=== PATIENT | female | born 1990 | race Two or more races ===

== ENCOUNTER 2017-12-02 07:42 | Emergency (ER) | payer BC, MEDICAID ==
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
[2017-12-02 10:13] VITALS: BP 120/72
== END 2017-12-02 10:05 | disposition home or self-care (01) ==
LOC: ER 07:42
DX: O9A.219 Injury, poisoning and certain other consequences of external causes complicating pregnancy, unspecified trimester (principal); S60.211A Contusion of right wrist, initial encounter; S60.222A Contusion of left hand, initial encounter; S50.12XA Contusion of left forearm, initial encounter; Y04.2XXA Assault by strike against or bumped into by another person, initial encounter; Y92.009 Unspecified place in unspecified non-institutional (private) residence as the place of occurrence of the external cause; Z3A.00 Weeks of gestation of pregnancy not specified
CPT/HCPCS: 99283